=== PATIENT | female | born 1955 | race Caucasian/White ===

== ENCOUNTER 2017-01-19 14:41 | Inpatient (IN) | payer OTHER ==
[~2017-01-19] VITALS: Ht 162.6 cm; Wt 76.7 kg
[2017-01-19 14:50] VITALS: BP 143/99
--- NOTE | 2017-01-19 15:01 | NUR ---
PATIENT PICKED UP FROM [facility]. PER HUASBAND/CAM MAKER PATIENT BEEN IN THIS STATE OF MIND X2DAYS. STARING AT THE CEILING BUT FOLLOWS COMMAND.ERMD AT BEDSIDE. VS FIELD BP 169/73,HR 97,16,POX 96 %. BS FIELD 151. HX: GASTRITIS,NO MEDS . DENIES N/V/D; SKIN IS PINK/WARM/DRY; NON VERBAL ON ADMIT; LUNGS CLEAR BL; HR EVEN AND REGULAR; PT DENIES ANY FEVER, CP, SOB, OR COUGH AT THIS TIME; PATIENT STATES PAIN OF 0/10 AT THIS TIME; VSS; PATIENT POSITIONED FOR COMFORT; HOB ELEVATED; BEDRAILS UP X2; BED DOWN. ER MD MADE AWARE OF PT STATUS.
--- NOTE | 2017-01-19 15:05 | NUR ---
DR SHULTZ AT BEDSIDE EVALUATING THE PT
[2017-01-19] MEDS ORDERED: AMMONIA AROMATIC 1 INHL INH ONE (15:16)
[2017-01-19 15:29] LABS: BASOPHILS # (AUTO) 0.2 K/uL (0.00-0.22); BASOPHILS % (AUTO) 1.7 % (0.0-2.0); EOSINOPHILS # (AUTO) 0.1 K/uL (0-0.4); EOSINOPHILS % (AUTO) 1.2 % (0.0-4.0); HEMOGLOBIN 15.4 g/dL (12.0-16.0); LYMPHOCYTES # (AUTO) 1.1 K/uL (2.5-16.5); LYMPHOCYTES % (AUTO) 11.6 % (20.5-51.1); MEAN CORPUSCULAR HEMOGLOBIN 30 pg (27-31); MEAN CORPUSCULAR HGB CONC 33 g/dL (33-37); MEAN CORPUSCULAR VOLUME 90 fL (80-94); MONOCYTES # (AUTO) 0.5 K/uL (0.8-1.0); MONOCYTES % (AUTO) 5.7 % (1.7-9.3); NEUTROPHILS # (AUTO) 7.6 K/uL (1.8-7.7); NEUTROPHILS % (AUTO) 79.8 % (42.2-75.2); PLATELET COUNT (AUTO) 276 K/uL (140-450); RED BLOOD CELL COUNT(AUTO) 5.11 MIL/uL (4.20-5.40); RED CELL DISTRIBUTION WIDTH 11.8 % (11.6-13.7); WHITE BLOOD COUNT (AUTO) 9.5 K/uL (4.8-10.8)
[2017-01-19 15:43] LABS: ANION GAP 15.2 (8-16); CARBON DIOXIDE 25.4 mmol/L (21-32); CHLORIDE 100 mmol/L (98-107); CREATININE 0.9 mg/dL (0.6-1.3); GFR ARICAN-AMERICAN 82 mL/min (>90); GLUCOSE 134 mg/dL (74-106); POTASSIUM 3.6 mmol/L (3.5-5.1); SODIUM SERUM 137 mmol/L (136-145); UREA NITROGEN, BLOOD 11 mg/dL (7-18)
[2017-01-19 15:49] LABS: ALBUMIN 3.8 g/dL (3.4-5.0); ASPARTATE AMINOTRANSFERASE 24 U/L (15-37); LIPASE 204 U/L (73-393); TOTAL BILIRUBIN 0.5 mg/dL (0.0-1.0)
[2017-01-19 15:50] LABS: ACETAMINOPHEN < 0.5 ug/ml (10-30); SALICYLATE < 2.8 mg/dL (2.8-20.0)
[2017-01-19] MEDS ORDERED: LORazepam 2 MG/ML VIAL IVP PRN (17:25)
--- NOTE | 2017-01-19 18:48 | NUR ---
Patient will be admitted to care of DR PALAFOX. Admited to M/S. Will go to room 124B. Belongings list completed. Report to ZHEN CHAU.
--- NOTE | 2017-01-19 19:33 | NUR ---
REPORT GIVEN ZHEN MOBLEY FOR CONTINUATION OF REPORT
[2017-01-19] MEDS ORDERED: LORazepam 2 MG/ML VIAL IVP ONE (20:10)
[2017-01-19] MEDS ORDERED: LORazepam 2 MG/ML VIAL ONE (20:25)
--- NOTE | 2017-01-19 20:54 | NUR ---
Patient will be admitted to care of DR PALAFOX. Admited to MS. Will go to room 124B. Belongings list completed. Report to KAPIL FONTAINE.TRANSPORTED VIA WHEELCHAIR, PT WITH STEADY GAIT, VSS, IV PATENT AND SL.
[2017-01-19 20:55] VITALS: BP 100/60
--- NOTE | 2017-01-19 21:00 | NUR ---
PATIENT IS CURRENTLY AWAKE ALERT TALKING IN [place]TS[place] BUT DISORIENTED AT THIS TIME PATIENT'S ADMIT DX APHASIA. PATIENT ACCOMPANIED BY EPI AND HE EXPLAINS THAT SHE HAS BEEN HAVING SEVERE STRESS AT WORK FOR APPROX 6 MONTHS AND TODAY IN THE MORNING AT HOME HIS DAUGHTER CALLED HIM BECAUSE SHE NOTICED THAT THE PATIENT HIS WAS DISORIENTED AND HE LEFT WORK TO TAKE HER TO THE URGENT CARE AND FROM THERE SHE WAS BROUGHT BY AMBULANCE TO THE ER. VITAL SIGNS TAKEN THEY ARE CURRENTLY WNL.PATIENT SKIN IS CURRENTLY INTACT NO SKIN BREAKDOWN NOTED ALSO CHECKED WITH ZHEN PINEDA.PATIENT AND STATES,"PATIENT HASN'T HAD ANY FALLS AND PRIOR TO THIS PATIENT WALKS FINE HAS NO PROBLEMS WALKING."PATIENT IS ABLE TO ASK QUESTIONS AND ANSWERS QUESTIONS BUT KEEPS THINKING ALL OF THE SUDDEN SHE IS STILL AT WORK AND NAMES PEOPLE FROM HER WORK. PATIENT WILL BE OBSERVED SIGNIFICANT OTHER AT BEDSIDE.PLAN OF CARE DISCUSSED WITH THE PATIENT AND .MRSA OF THE NARES COLLECTED AND WILL BE SEND TO THE LAB. WILL MONITOR.CALL LIGHT WITHIN REACH.
--- NOTE | 2017-01-19 21:00 | NUR ---
Patient's Plan of Care was discussed and reviewed with STENOTYPIST: Hamida REYNOSO
--- NOTE | 2017-01-19 22:15 | NUR ---
PATIENT IS AWAKE INTERACTING WITH FAMILY MEMBERS AT THIS TIME.WILL CONTINUE TO MONITOR.
--- NOTE | 2017-01-20 00:30 | NUR ---
EPI JUST LEFT PATIENT SLEEPING IN BED AT THIS TIME CONTINUE TO BE MONITORED.CALL LIGHT WITHIN REACH WILL CONTINUE TO MONITOR.
--- NOTE | 2017-01-20 02:28 | NUR ---
PATIENT SLEEPING IN BED AT THIS TIME WILL CONTINUE TO MONITOR NO SIGN OR COMPLAINS OF PAIN OR DISCOMFORT.
[2017-01-20 04:00] VITALS: BP 116/78
--- NOTE | 2017-01-20 04:15 | NUR ---
PATIENT IS CURRENTLY RESTING IN BED I WOKE UP THE PATIENT TO TELL HER THAT I WILL NEED A URINE SPECIMEN AND THEN PATIENT STARTED SAYING SHE MUST LEAVE NOW BECAUSE HER DAUGHTER WILL GET KILLED AND SOMEONE WILL SHOOT HER.SHE IS CALLING FOR EPI. PATIENT GOT OUT OF HER ROOM SHE IS COMPLETELY DISORIENTED AND UNABLE TO FOLLOW INSTRUCTIONS.CLIENT SERVICE PROFESSIONALUNDERBASTER MIRIAM AND JHOAN BERNSTEIN ATTEMPTED TO HELP THE PATIENT REMAIN CALM AND STAY IN THE ROOM.IN THE MEANTIME I CALLED HER EPI AND I WAS ABLE TO TELL HIM THAT PATIENT WAS ASKING FOR HIM AND WANTS TO SEE HIM AND I INFORMED HIM THAT PATIENT IS VERY DISORIENTED AND DOESN'T LISTEN TO US.WHILE I WAS TALKING TO HER ON THE PHONE PATIENT RAN FAST AND OUT THE DOOR TO THE OUTSIDE PARKING LOT PATIENT WAS BROUGHT BACK WITH THE ASSISTANCE OF SECURITY AND PATIENT REMAINS SAFE AND BACK IN HER ROOM.
--- NOTE | 2017-01-20 04:25 | NUR ---
I SPOKE TO MD TUTTLE EARLIER AND EXPLAINED THAT PATIENT IS VERY DISORIENTED AND HEADED OUT THE DOOR AND WAS BROUGHT BACK BY SECURITY AND I WAS GETTING ORDERS FROM MD TUTTLE PATIENT MADE A RUN AGAIN TOWARD THE DOOR AND ATTEMPTED TO LEAVE THE HOSPITAL AGAIN PATIENT WAS BROUGHT BACK BY SECURITY AND THEY ARE CURRENTLY WATCHING OVER THE PATIENT.I WILL CARRY OUT THE ORDERS THAT MD TUTTLE GAVE AND I INFORMED GARBAGE COLLECTOR DRIVER NURSE ABOUT THE NEW ORDERS AND ALSO THAT MD TUTTLE WANTS PATIENT TO HAVE 1:1 SITTER.COBBLER APPRENTICE NAVIN WILL BE INFORMED.
--- NOTE | 2017-01-20 04:30 | NUR ---
IN THE ROOM WITH THE PATIENT PATIENT IS SMILING PLEADING HER EPI NOT TO LEAVE HER. SHE IS DISORIENTED BUT IS CALM AND COOPERATIVE WILL CONTINUE TO MONITOR.I WAS ABLE TO GIVE HER THE HALDOL WITH HER PERMISSION.WILL CONTINUE TO MONITOR. Addendum: 01/20/17 at 0637 by Zena Smallwood LVN ACTUAL TIME I GAVE THE HALDOL WAS 1403
[2017-01-20] MEDS ORDERED: HALOPERIDOL IM 5 MG/ML VIAL IM ONE (04:35)
--- NOTE | 2017-01-20 06:25 | NUR ---
PATIENT IS CURRENTLY CALM HALDOL WAS EFFECTIVE AND REMAINS AT BEDSIDE WITH THE PATIENT.PATIENT IS CURRENTLY HAPPY TO SEE EPI HER SIGNFICANT OTHER AND SHE FOLLOWS COMMANDS FROM HIM.EPI SAID HE WILL BE STAYING WITH HER DURING THE DAY MONOTYPE CASTER NAVIN AWARE SHE ALSO SPOKE WITH EPI.I TOLD EPI THAT IF HE NEEDS TO LEAVE HE MUST LET THE NURSES KNOW.
--- NOTE | 2017-01-20 07:04 | NUR ---
TALKED TO DR. TUTTLE MADE AWARE PT AT BEDSIDE AND WILLING TO STAY AT BEDSIDE MOST OF THE DAY,ASKED DR. BROWN IF NEED ANOTHER STAFF TO STAY WITH PT SITTER, PER MD, IS GOOD ENOUGH, CHARGE NURSE AWARE AND NURSE AWARE, PER KAPIL PT IS CALM WHEN FAMILIAR FACE IS AT BEDSIDE
--- NOTE | 2017-01-20 07:37 | NUR ---
PATIENT IS CALM AT BEDSIDE ENDORSED TO RN HENRIQUE THAT WILL STAY WITH THE PATIENT AND HE WAS INFORMED HE HAS TO NOTIFY THE NURSE WHEN HE HAS TO LEAVE OR GO ANYWHERE BECAUSE PATIENT NEEDS TO BE MONITORED CLOSELY. EPI VERBALIZES UNDERSTANDING.
--- NOTE | 2017-01-20 07:38 | NUR ---
RECEIVED REPORT FROM SENIOR NET SOFTWARE ENGINEER NURSE KAPIL AT BEDSIDE FOR CONTINUITY OF CARE. PT IS AWAKE AND RESPONSIVE. INTRODUCED SELF AND UPDATED BOARD. PT'S IS AT BEDSIDE. CALLED LANGUAGE LINE [phone] AND SPOKE WITH BATCH MIXING TRUCK DRIVER RAJ #[id number]. TRANSLATED AND ASKED PT TO STATE NAME. KNOWS OWN NAME ES. PT STATED THAT SHE IS IN THE HOSPITAL. DOES NOT STATE WHAT DAY IT IS TODAY. ASKED PT HOW SHE IS DOING. STATED SHE IS MUCH BETTER THAN BEFORE. ASKED IF SHE NEEDED ASSISTANCE FROM NURSE. PT STATED SHE IS OKAY. INFORMED PT AND TO CALL FOR ASSISTANCE. PT VERBALIZED UNDERSTANDING. TOLD THAT IF HE NEEDED TO STEP OUT OF ROOM TO CALL ME OR CLINICAL LABORATORY SCIENTIST. PT'S SAID HE WILL. PT IS SITTING UP NOW EATING BREAKFAST. NO SIGNS OF DISTRESS. NO ALTERED LOC. BED IN LOW POSITION, WHEELS LOCKED, CALL LIGHT WITHIN REACH. WILL CONTINUE CONSTANT MONITORING AND SAFETY PRECAUTIONS.
[2017-01-20 07:49] LABS: BASOPHILS # (AUTO) 0.5 K/uL (0.00-0.22); BASOPHILS % (AUTO) 4.2 % (0.0-2.0); EOSINOPHILS % (AUTO) 0.4 % (0.0-4.0); HEMATOCRIT 44.5 % (36-48); HEMOGLOBIN 14.9 g/dL (12.0-16.0); LYMPHOCYTES # (AUTO) 2.6 K/uL (2.5-16.5); LYMPHOCYTES % (AUTO) 21.4 % (20.5-51.1); MEAN CORPUSCULAR HEMOGLOBIN 30 pg (27-31); MEAN CORPUSCULAR HGB CONC 33 g/dL (33-37); MEAN CORPUSCULAR VOLUME 90 fL (80-94); MONOCYTES # (AUTO) 0.9 K/uL (0.8-1.0); MONOCYTES % (AUTO) 7.1 % (1.7-9.3); NEUTROPHILS # (AUTO) 8.2 K/uL (1.8-7.7); NEUTROPHILS % (AUTO) 66.9 % (42.2-75.2); PLATELET COUNT (AUTO) 260 K/uL (140-450); RED BLOOD CELL COUNT(AUTO) 4.96 MIL/uL (4.20-5.40); WHITE BLOOD COUNT (AUTO) 12.2 K/uL (4.8-10.8)
[2017-01-20 08:00] VITALS: BP 92/47
[2017-01-20 08:20] LABS: ALBUMIN 3.3 g/dL (3.4-5.0); CARBON DIOXIDE 25.7 mmol/L (21-32); MAGNESIUM 2.2 mg/dL (1.8-2.4); PHOSPHORUS 4.3 mg/dL (2.5-4.9); POTASSIUM 3.7 mmol/L (3.5-5.1); TOTAL BILIRUBIN 0.5 mg/dL (0.0-1.0)
--- NOTE | 2017-01-20 08:30 | NUR ---
FAXED SENT TO DR. CHACKO [facility] FOR PSYCH EVALUATION. FAXED CONFIRMED. AWAITING FOR CALL BACK.
--- NOTE | 2017-01-20 09:37 | NUR ---
PATIENT HAS BEEN SCREENED AND CATEGORIZED LOW NUTRITION RISK. PATIENT WILL BE SEEN WITHIN 7 DAYS OF ADMISSION. 01/26/[address]
[2017-01-20] MEDS ORDERED: IBUP-2213 (10:04)
[2017-01-20] MEDS ORDERED: OMEP20EC6 (10:04)
--- NOTE | 2017-01-20 11:00 | NUR ---
SPOKE WITH PT ABOUT WHAT HAPPENED LAST NIGHT. PT STATED SHE REMEMBERS EVERYTHING BUT IS FEELING MUCH BETTER NOW. STATED THAT SHE NEVER HAD A HISTORY OF ALOC. MADE PT AWARE THAT SHE NEEDS TO BE SEEN BY DR. CHACKO. PT VERBALIZED UNDERSTANDING. REMAINS AT BEDSIDE SITTER. NO COMPLAINTS AT THIS TIME. WILL CONTINUE CLOSE MONITORING.
--- NOTE | 2017-01-20 13:08 | NUR ---
CHECKED ON PT IN ROOM. AND DAUGHTER ARE AT BEDSIDE. WILL GO HOME RIGHT NOW FOR A FEW HOURS. PT'S DAUGHTER AGREED TO STAY IN ROOM WITH PT. INSTRUCTED DAUGHTER TO USE PHONE AND DIAL NURSE OR AVIATION WARFARE SYSTEMS OPERATOR EXTENSION IF PT NEEDS HELP OR NEED TO LEAVE THE ROOM. DAUGHTER VERBALIZED UNDERSTANDING. INFORMED FAMILY THAT PSYCH EVAL IS STILL PENDING. AND DAUGHTER VERBALIZED UNDERSTANDING. PT IS SLEEPING IN BED RIGHT NOW. FINISHED LUNCH TRAY. NO SIGNS OF DISTRESS OR ALOC. WILL CONTINUE CLOSE MONITORING.
--- NOTE | 2017-01-20 14:30 | NUR ---
PT'S AND DAUGHTER ARE AT BEDSIDE. SPOKE WITH FOR NEED FOR SITTER TONIGHT. AGREES TO STAY TONIGHT SITTER. PT IS LYING IN BED, NONVERBAL. PER DAUGHTER AND , STATED THAT SHE LIES IN BED AND STARES AT THE CEILING SOMETIMES AT HOME. PT IN NO DISTRESS AT THIS TIME. WILL CONTINUE TO MONITOR.
--- NOTE | 2017-01-20 15:30 | NUR ---
PT GOT UP TO USE BATHROOM. PT STATED SHE HAD A BM. GOT UP TO WALK DOWN THE HALLWAY ACCOMPANIED BY DAUGHTER. PT IS COOPERATIVE AT THIS TIME. WALKED WITH STEADY GAIT. NO WEAKNESS OBSERVED. NO DISORIENTATION NOTED. WILL STAY AT BEDSIDE SITTER TONIGHT. WILL CONTINUE TO MONITOR.
[2017-01-20 16:00] VITALS: BP 101/57
--- NOTE | 2017-01-20 16:44 | NUR ---
CALLED PSYCH OFFICE FOR DR. CHACKO AND LEFT MESSAGE THAT PT STILL NEEDS EVAL DONE.
--- NOTE | 2017-01-20 17:24 | NUR ---
DR. FARIA CALLED BACK AND STATED SHE WILL BE HERE IN AN HOUR TO SEE PT.
--- NOTE | 2017-01-20 19:21 | NUR ---
ENDORSED PT TO BEAD MACHINE OPERATOR NURSE JUAN CARLOS. SITTER AT BEDSIDE. PT IN STABLE CONDITION.
--- NOTE | 2017-01-20 19:30 | NUR ---
RECEIVED FROM AM RN IN BED AWAKE AND ALERT. SMILING. GOOD AFFECT. PT.S FAMILY MEMBERS IN HERE VISITING. ENCOURAGED TO CALL FOR ANY HELP THEY MAY NEED AND THAT ASK AND INFORM ME IF WITH PAIN. FAMILY MEMBERS SPEAKS GOOD UPPER SORBIAN. PT. ONLY SMILES AT THIS TIME. IVF SITE TO [facility]#20 INTACT AND WITH GOOD BLOOD RETURN. CALL LIGHT WITH IN REACH.
--- NOTE | 2017-01-20 21:09 | NUR ---
ENDORSED TO ANOTHER RN FOR CONTINUITY OF CARE ORDERED BY CHARGE NURSE. SLEEPING. SPOUSE AT BEDSIDE. NO COMPLAINTS DONE.
--- NOTE | 2017-01-20 21:15 | NUR ---
RECEIVED REPORT FROM JUAN CARLOS (RN) AT PT BEDSIDE FOR CONTINUITY OF CARE. PT IS APHASIC. PRIMARY LANGUAGE IS NEPALI. PT HAS A RIGHT AC IV 20G SL. PT IS ON ROOM AIR. SKIN INTACT. SAFETY PRECAUTIONS IN PLACE. UPDATED BOARD. DISCUSSED PLAN OF CARE WITH PT, PT VERBALIZED UNDERSTANDING. VITAL SIGNS WITHIN NORMAL LIMITS. PT IN STABLE CONDITION, NO SIGNS OF DISTRESS NOTED. BED IN LOW POSITION, CALL LIGHT WITHIN REACH. WILL CONTINUE TO MONITOR.
--- NOTE | 2017-01-20 22:47 | NUR ---
PAGED WATERPROOFING MACHINE OPERATOR DR RAFAL RAMOS BECAUSE PT C/O OF CRAMPING PAIN IN LEGS AND TOES AND ACHING ABDOMINAL PAIN.
--- NOTE | 2017-01-20 23:00 | NUR ---
DR SOUSA CALLED BACK AND ORDERED 0.5MG DILAUDID IVP. WILL ADMINISTER WHEN PHARMACY VERIFIES.
[2017-01-21] VITALS: BP 114/71
[2017-01-21] MEDS: HYDROmorphone 1 MG/ML AMP IVP SCH ×2 (00:45→06:00)
--- NOTE | 2017-01-21 00:45 | NUR ---
PT REFUSED THE DILAUDID MEDICATION BECAUSE SHE SAID THE PAIN WENT AWAY WITH THE EXTRA BLANKETS SHE GOT. PT STATES HER PAIN WENT FROM 10/10 TO 0.
--- NOTE | 2017-01-21 06:42 | NUR ---
PT REFUSED PAIN MEDICATION AGAIN. STATES SHE HAS NO PAIN.
--- NOTE | 2017-01-21 07:34 | NUR ---
ENDORSED PT TO DAY SHIFT RN FOR CONTINUITY OF CARE. PT IN STABLE CONDITION.
--- NOTE | 2017-01-21 07:35 | NUR ---
RECEIVED REPORT FROM POST GRADUATE INTERNSHIP NURSE VINCE AT BEDSIDE FOR CONTINUITY OF CARE. PT IS AWAKE AND ORIENTED. INTRODUCED SELF AND UPDATED BOARD. IS AT BEDSIDE SITTER. PT IS SITTING UP EATING BREAKFAST RIGHT NOW. NO SIGNS OF DISTRESS. PT DENIES PAIN. WILL CONTINUE TO MONITOR.
[2017-01-21 09:09] VITALS: BP 122/72
--- NOTE | 2017-01-21 09:33 | NUR ---
USED LANGUAGE LINE AND SPOKE WITH BUSTER #[id number]. TRANSLATED IN [place] FOR . GAVE D/C INSTRUCTIONS AND FORMS. GAVE INFORMATION ON MAJOR DEPRESSION HANDOUT PROVIDED IN [place] AND CASE MANAGEMENT REFERRAL FORMS FOR PSYCH FACILITIES IN [place] WAS GIVE. PT'S VERBALIZED UNDERSTANDING. D/C'D IV CATHETER FROM RIGHT FA 22G. IV CATHETER TIP INTACT. APPLIED DRESSING AND PRESSURE TO SITE. NO BLEEDING NOTED. REMOVED ID BANDS. PT WILL CHANGE IN OWN CLOTHES AND GATHER ALL PERSONAL BELONGINGS.
--- NOTE | 2017-01-21 09:45 | NUR ---
PT D/C'D TO GO HOME WITH . D/C INSTRUCTIONS AND FORMS SIGNED BY . PSYCH REFERRALS PROVIDED. PT LEFT UNIT WITH ALL PERSONAL BELONGINGS. LEFT VIA WHEELCHAIR ACCOMPANIED BY , RN AND STUDENT. PT LEFT IN STABLE CONDITION.
--- NOTE | 2017-01-22 10:15 | NUR ---
CM NOTE RETRO REVIEW FAXED TO [facility] / FAX# [phone]
== END 2017-01-21 09:45 | disposition home or self-care (01) | DRG 885 ==
LOC: MED 14:41 → MTU 17:25 → UNDOADMIN 17:54
PROVIDERS: ADMIT Hospitalist; ATTEND Hospitalist
DX: F32.3 Major depressive disorder, single episode, severe with psychotic features (principal); R47.01 Aphasia; Z88.0 Allergy status to penicillin
CPT/HCPCS: 36415; 70450; 71010; 80053; 82140; 82550; 82553; 82948; 83690; 83735; 84100; 84484; 85025; 87081; 93005; 96374; 99285; C1758; G0480; G0482; J1170; J1630; J2060; J7030; Q0092

== ENCOUNTER 2020-02-04 22:19 | Emergency (ER) | payer MEDICARE, OTHER ==
[~2020-02-04] VITALS: Ht 160 cm; Wt 72.6 kg
[~2020-02-04 22:19] MED LIST: IBUP-2213; OMEP-283
[2020-02-04 22:23] VITALS: BP 126/90
--- NOTE | 2020-02-04 22:26 | NUR ---
TO LOBBY A/W BED AMBULATORY
[2020-02-05 00:31] VITALS: BP 126/90
--- NOTE | 2020-02-05 00:31 | NUR ---
Patient discharged with v/s stable. Written and verbal after care instructions given and explained. Patient alert, oriented and verbalized understanding of instructions. Ambulatory with steady gait. All questions addressed prior to discharge. ID band removed. Patient advised to follow up with PMD. Rx of STACIE given. Patient educated on indication of medication including possible reaction and side effects. Opportunity to ask questions provided and answered.
== END 2020-02-05 00:31 | disposition home or self-care (01) ==
LOC: MED 22:19
DX: G47.00 Insomnia, unspecified (principal); E07.9 Disorder of thyroid, unspecified; K21.9 Gastro-esophageal reflux disease without esophagitis; Z88.0 Allergy status to penicillin; Z79.899 Other long term (current) drug therapy
CPT/HCPCS: 99283